=== PATIENT | male | born 1945 | race Caucasian/White ===

== ENCOUNTER 2017-09-22 11:42 | Emergency (ER) | payer MEDICARE, OTHER ==
[~2017-09-22] VITALS: Ht 170.2 cm; Wt 81.7 kg
[~2017-09-22 11:42] MED LIST: ACET325 PO; ALBU90OI6 INH; AMIO200 PO; AMLO10 PO; ASPI81CH PO; ASPI81EC PO; ATOR20 PO; Aspir 8181 MG PO; Aspirin EC81 MG PO; Ativan1 MG PO; Augmentin 875-1 EACH PO; CARB25 PO; CARBI50 PO; DONE5 PO; EZET10-80 PO; FURO20 PO; GABA300T24 PO; LISI20 PO; LORA1 PO; LORA2 PO; METO50ER PO; MIRT15 PO; NAMZARIC 21 MG1 EACH PO; Neupro1 EAC1; OLME20 PO; PANT40 PO; POTCHL20ER PO; PRAM.5 PO; PROAIR RESPICL90 MCG IH; SPACE CHAMBER1 EACH PO; Sulfamethoxazo1 EAC1 PO; WARF1 PO; WARF3 PO; WARF5 PO; XARELTO20 MG PO
[2017-09-22 12:28] LABS: BASOPHILS ABSOLUTE AUTO 0.03 K/mm3 (0.00-0.23); BASOPHILS PERCENT AUTO 0 % (0-2); EOSINOPHILS ABSOLUTE AUTO 0.34 K/mm3 (0.00-0.68); EOSINOPHILS PERCENT AUTO 5 % (0-6); Hemoglobin 14.1 g/dL (13.5-17.5); IMMATURE GRAN ABSOLUTE AUTO 0.03 K/mm3 (0.00-0.10); IMMATURE GRAN PERCENT AUTO 0 % (0-1); LYMPHOCYTES ABSOLUTE AUTO 1.06 K/mm3 (0.84-5.20); LYMPHOCYTES PERCENT AUTO 15 % (21-46); MONOCYTES ABSOLUTE AUTO 0.67 K/mm3 (0.16-1.47); MONOCYTES PERCENT AUTO 10 % (4-13); Mean Corpuscular HGB 27.6 pg (26.0-34.0); Mean Corpuscular HGB Conc 30.7 g/dL (31.5-36.5); Mean Corpuscular Volume 90 fL (80-100); Mean Platelet Volume 10.1 fL (9.1-12.4); NEUTROPHILS ABSOLUTE AUTO 4.94 K/mm3 (1.96-9.15); NEUTROPHILS PERCENT AUTO 70 % (41-73); Platelet Count 197 K/mm3 (150-400); RDW Coefficient Variation 14.7 % (11.7-14.2); RDW Standard Deviation 48.9 fL (35.1-46.3); White Blood Cell Count 7.07 K/mm3 (4.00-11.30)
[2017-09-22 13:00] LABS: Alanine Aminotransfer (ALT/SGP 8 U/L (12-78); Albumin, Blood 3.7 g/dL (3.4-5.0); Albumin/Globulin Ratio 1.1 (0.8-1.8); Alk Phos 116 U/L (50-136); Anion Gap 8 mmol/L (6-16); Aspartate Aminotrans (AST/SGOT 18 U/L (12-37); Bilirubin, Total 0.6 mg/dL (0.1-1.0); Blood Urea Nitrogen 24 mg/dL (8-24); Bun/Creatinine Ratio 20.3 (12.0-20.0); CO2, Blood 27 mmol/L (21-32); Chloride, Blood 107 mmol/L (98-108); Creatinine, Blood 1.18 mg/dL (0.60-1.20); Globulin, Blood 3.5 g/dL (2.2-4.0); Glomerular Filtration Rate >60 (60-); Glucose, Blood 101 mg/dL (70-99); Potassium, Blood 4.2 mmol/L (3.5-5.5); Sodium, Blood 142 mmol/L (136-145); Total Protein, Blood 7.2 g/dL (6.4-8.2)
[2017-09-22 15:10] LABS: Troponin I <0.015 ng/mL (0.000-0.040)
[2018-01-30] MEDS ORDERED: AMLO10 PO (14:32)
[2018-01-30] MEDS ORDERED: FURO40 PO (14:33)
[2018-01-30] MEDS ORDERED: ATOR20 PO (14:33)
[2018-01-30] MEDS ORDERED: ALBU90OI INH (14:37)
[2018-01-30] MEDS ORDERED: MAGNESIUM250 MG PO (14:39)
[2018-01-30] MEDS ORDERED: SPIR25 PO (14:41)
[2018-01-30] MEDS ORDERED: Zantac150 MG PO (14:41)
== END 2017-09-22 15:43 | disposition home or self-care (01) ==
LOC: ER 11:42
PROVIDERS: Psychiatry & Neurology Psychiatry
DX: R42 Dizziness and giddiness (principal); R53.1 Weakness; I10 Essential (primary) hypertension; J44.9 Chronic obstructive pulmonary disease, unspecified; F03.90 Unspecified dementia, unspecified severity, without behavioral disturbance, psychotic disturbance, mood disturbance, and anxiety; Z88.4 Allergy status to anesthetic agent; Z79.899 Other long term (current) drug therapy; Z95.1 Presence of aortocoronary bypass graft; Z87.01 Personal history of pneumonia (recurrent); Z90.89 Acquired absence of other organs; Z87.891 Personal history of nicotine dependence
CPT/HCPCS: 36415; 70450; 71046; 80053; 84484; 85025; 93005; 93010; 99284

== ENCOUNTER 2018-01-31 06:51 | Day surgery (SDC) | payer MEDICARE, OTHER ==
[~2018-01-31] VITALS: Ht 170.2 cm; Wt 85.0 kg
[~2018-01-31 06:51] MED LIST changes: +ALBU90OI INH; +FURO40 PO; +MAGNESIUM250 MG PO; +SPIR25 PO; +Zantac150 MG PO
[2018-01-31] MEDS ORDERED: Carbidopa-Levo1 EAC1 PO (07:36)
[2018-01-31] MEDS ORDERED: ENTRESTO 24 MG1 EACH PO (10:44)
== END 2018-01-31 14:15 | disposition home or self-care (01) ==
LOC: MHTC 06:51
PROC: B213YZZ Fluoroscopy of Multiple Coronary Artery Bypass Grafts using Other Contrast (ICD-10-PCS; principal; 2018-01-31)
PROC: 4A023N7 Measurement of Cardiac Sampling and Pressure, Left Heart, Percutaneous Approach (ICD-10-PCS; principal; 2018-01-31)
PROC: B211YZZ Fluoroscopy of Multiple Coronary Arteries using Other Contrast (ICD-10-PCS; principal; 2018-01-31)
DX: I25.119 Atherosclerotic heart disease of native coronary artery with unspecified angina pectoris (principal); I25.719 Atherosclerosis of autologous vein coronary artery bypass graft(s) with unspecified angina pectoris; I25.2 Old myocardial infarction; I34.0 Nonrheumatic mitral (valve) insufficiency; E78.5 Hyperlipidemia, unspecified; G20 Parkinson's disease
CPT/HCPCS: 93455; 93459; 99152; 99153; C1769; C1894; J1644; J2250; J3010; J7030; J7040; Q9967

== ENCOUNTER 2018-11-23 07:41 | Emergency (ER) | payer MEDICARE, OTHER ==
[~2018-11-23] VITALS: Ht 170.2 cm; Wt 81.7 kg
[~2018-11-23 07:41] MED LIST changes: +Carbidopa-Levo1 EAC1 PO; +ENTRESTO 24 MG1 EACH PO
[2018-11-23 08:24] LABS: BASOPHILS ABSOLUTE AUTO 0.03 K/mm3 (0.00-0.23); BASOPHILS PERCENT AUTO 1 % (0-2); EOSINOPHILS ABSOLUTE AUTO 0.13 K/mm3 (0.00-0.68); EOSINOPHILS PERCENT AUTO 2 % (0-6); Hematocrit 41.4 % (37.0-53.0); Hemoglobin 11.9 g/dL (13.5-17.5); IMMATURE GRAN ABSOLUTE AUTO 0.03 K/mm3 (0.00-0.10); IMMATURE GRAN PERCENT AUTO 1 % (0-1); LYMPHOCYTES PERCENT AUTO 12 % (21-46); MONOCYTES ABSOLUTE AUTO 0.56 K/mm3 (0.16-1.47); MONOCYTES PERCENT AUTO 9 % (4-13); Mean Corpuscular HGB 24.1 pg (26.0-34.0); Mean Corpuscular HGB Conc 28.7 g/dL (31.5-36.5); Mean Corpuscular Volume 84 fL (80-100); Mean Platelet Volume 10.7 fL (9.1-12.4); NEUTROPHILS ABSOLUTE AUTO 4.94 K/mm3 (1.96-9.15); NEUTROPHILS PERCENT AUTO 76 % (41-73); Platelet Count 150 K/mm3 (150-400); RDW Coefficient Variation 16.9 % (11.7-14.2); Red Blood Cell Count 4.93 M/mm3 (4.30-5.90); White Blood Cell Count 6.49 K/mm3 (4.00-11.30)
[2018-11-23 08:43] LABS: Alanine Aminotransfer (ALT/SGP 9 U/L (12-78); Albumin/Globulin Ratio 1.3 (0.8-1.8); Alk Phos 126 U/L (50-136); Anion Gap 10 mmol/L (6-16); Aspartate Aminotrans (AST/SGOT 18 U/L (12-37); Bilirubin, Total 0.8 mg/dL (0.1-1.0); Blood Urea Nitrogen 26 mg/dL (8-24); Bun/Creatinine Ratio 17.7 (12.0-20.0); CO2, Blood 23 mmol/L (21-32); Calcium, Blood 8.5 mg/dL (8.5-10.1); Chloride, Blood 110 mmol/L (98-108); Creatinine, Blood 1.47 mg/dL (0.60-1.20); Glomerular Filtration Rate 50 (60-); Glucose, Blood 113 mg/dL (70-99); Potassium, Blood 4.1 mmol/L (3.5-5.5); Sodium, Blood 143 mmol/L (136-145); Troponin I <0.015 ng/mL (0.000-0.040)
[2018-11-23 09:23] LABS: Influenza A Negative (NEGATIVE); Influenza B Negative (NEGATIVE)
[2018-11-23] MEDS ORDERED: Lasix40 MG PO (11:12)
== END 2018-11-23 11:52 | disposition home or self-care (01) ==
LOC: ER 07:41
PROVIDERS: Emergency Medicine
DX: I11.0 Hypertensive heart disease with heart failure (principal); I50.9 Heart failure, unspecified; J44.9 Chronic obstructive pulmonary disease, unspecified; F03.90 Unspecified dementia, unspecified severity, without behavioral disturbance, psychotic disturbance, mood disturbance, and anxiety; Z87.891 Personal history of nicotine dependence; Z88.8 Allergy status to other drugs, medicaments and biological substances; Z79.899 Other long term (current) drug therapy
CPT/HCPCS: 36415; 71046; 80053; 83880; 84484; 85025; 87804; 93005; 93010; 96374; 99285-25; J1940

== ENCOUNTER 2019-03-15 20:52 | Emergency (ER) | payer MEDICARE, OTHER ==
[~2019-03-15] VITALS: Ht 172.7 cm; Wt 84.8 kg
[~2019-03-15 20:52] MED LIST changes: -NAMZARIC 28 MG1 EACH PO; -SINEMET 25-1001 EACH PO
[2019-03-15] MEDS ORDERED: SINEMET 25-1001 EACH PO (23:23)
== END 2019-03-16 00:35 | disposition home or self-care (01) ==
LOC: ER 20:52
DX: S05.01XA Injury of conjunctiva and corneal abrasion without foreign body, right eye, initial encounter (principal); W22.8XXA Striking against or struck by other objects, initial encounter; I10 Essential (primary) hypertension; J44.9 Chronic obstructive pulmonary disease, unspecified; F03.90 Unspecified dementia, unspecified severity, without behavioral disturbance, psychotic disturbance, mood disturbance, and anxiety; G20 Parkinson's disease; Z87.891 Personal history of nicotine dependence; Z88.8 Allergy status to other drugs, medicaments and biological substances; Z79.899 Other long term (current) drug therapy
CPT/HCPCS: 90471; 90714; 99283-25

== ENCOUNTER → 2019-03-15 | Outpatient (CLI) | payer MEDICARE, OTHER ==
[~2019-03-15] MED LIST changes: +Lasix40 MG PO; +NAMZARIC 28 MG1 EACH PO; +SINEMET 25-1001 EACH PO
[2019-03-15 15:35] LABS: BASOPHILS ABSOLUTE AUTO 0.04 K/mm3 (0.00-0.23); BASOPHILS PERCENT AUTO 1 % (0-2); EOSINOPHILS ABSOLUTE AUTO 0.16 K/mm3 (0.00-0.68); EOSINOPHILS PERCENT AUTO 2 % (0-6); Hematocrit 42.3 % (37.0-53.0); Hemoglobin 13.2 g/dL (13.5-17.5); IMMATURE GRAN ABSOLUTE AUTO 0.05 K/mm3 (0.00-0.10); IMMATURE GRAN PERCENT AUTO 1 % (0-1); LYMPHOCYTES ABSOLUTE AUTO 0.81 K/mm3 (0.84-5.20); LYMPHOCYTES PERCENT AUTO 10 % (21-46); MONOCYTES ABSOLUTE AUTO 0.73 K/mm3 (0.16-1.47); MONOCYTES PERCENT AUTO 9 % (4-13); Mean Corpuscular HGB 26.7 pg (26.0-34.0); Mean Corpuscular HGB Conc 31.2 g/dL (31.5-36.5); Mean Corpuscular Volume 86 fL (80-100); Mean Platelet Volume 10.4 fL (9.1-12.4); NEUTROPHILS ABSOLUTE AUTO 6.26 K/mm3 (1.96-9.15); NEUTROPHILS PERCENT AUTO 78 % (41-73); Platelet Count 143 K/mm3 (150-400); RDW Coefficient Variation 17.2 % (11.7-14.2); RDW Standard Deviation 53.1 fL (35.1-46.3); Red Blood Cell Count 4.95 M/mm3 (4.30-5.90); White Blood Cell Count 8.05 K/mm3 (4.00-11.30)
== END ==
LOC: LAB EV 15:31 → LAB SHORT 15:31
PROVIDERS: Nurse Practitioner
DX: K64.9 Unspecified hemorrhoids (principal)
CPT/HCPCS: 85025

== ENCOUNTER 2019-04-20 16:37 | Emergency (ER) | payer MEDICARE, OTHER ==
[~2019-04-20] VITALS: Ht 170.2 cm; Wt 67.1 kg
[~2019-04-20 16:37] MED LIST changes: +SINEMET 25-1001 EACH PO
[2019-04-20 17:32] LABS: Source, Urine Clean Catch
[2019-04-20 17:35] LABS: BASOPHILS ABSOLUTE AUTO 0.03 K/mm3 (0.00-0.23); BASOPHILS PERCENT AUTO 0 % (0-2); EOSINOPHILS ABSOLUTE AUTO 0.09 K/mm3 (0.00-0.68); EOSINOPHILS PERCENT AUTO 1 % (0-6); Hematocrit 44.6 % (37.0-53.0); Hemoglobin 13.7 g/dL (13.5-17.5); IMMATURE GRAN ABSOLUTE AUTO 0.03 K/mm3 (0.00-0.10); IMMATURE GRAN PERCENT AUTO 0 % (0-1); LYMPHOCYTES ABSOLUTE AUTO 0.86 K/mm3 (0.84-5.20); LYMPHOCYTES PERCENT AUTO 10 % (21-46); MONOCYTES ABSOLUTE AUTO 0.76 K/mm3 (0.16-1.47); MONOCYTES PERCENT AUTO 9 % (4-13); Mean Corpuscular HGB 27.1 pg (26.0-34.0); Mean Corpuscular HGB Conc 30.7 g/dL (31.5-36.5); Mean Corpuscular Volume 88 fL (80-100); Mean Platelet Volume 10.4 fL (9.1-12.4); NEUTROPHILS ABSOLUTE AUTO 6.99 K/mm3 (1.96-9.15); NEUTROPHILS PERCENT AUTO 80 % (41-73); Platelet Count 164 K/mm3 (150-400); RDW Coefficient Variation 15.5 % (11.7-14.2); RDW Standard Deviation 50.1 fL (35.1-46.3); Red Blood Cell Count 5.06 M/mm3 (4.30-5.90); White Blood Cell Count 8.76 K/mm3 (4.00-11.30)
[2019-04-20 17:37] LABS: Bilirubin, Urine Neg (Neg); Blood, Urine 1+ (Neg); Glucose Qualitative, Urine Neg (Neg); Ketones, Urine Neg (Neg); Leukocyte Esterase, Urine Neg (Neg); Nitrite, Urine Neg (Neg); Protein, Urine Neg (Neg); Specific Gravity, Urine 1.015 (1.003-1.022); Urobilinogen, Urine NORM (Normal)
[2019-04-20 17:46] LABS: Appearance, Urine Hazy (Clear); Color, Urine Pale Yellow (P-Yellow)
[2019-04-20 17:47] LABS: Bacteria Not Seen /hpf; Red Blood Cells, Urine 0-2 /hpf (0-2); Squamous Epithelial Cells Rare /hpf (Few); White Blood Cells, Urine 0-2 /hpf (0-5)
[2019-04-20 17:57] LABS: Albumin, Blood 3.9 g/dL (3.4-5.0); Albumin/Globulin Ratio 1.3 (0.8-1.8); Bilirubin, Total 0.9 mg/dL (0.1-1.0); Bun/Creatinine Ratio 17.1 (12.0-20.0); Calcium, Blood 8.9 mg/dL (8.5-10.1); Creatinine, Blood 1.46 mg/dL (0.60-1.20); Potassium, Blood 3.6 mmol/L (3.5-5.5); Total Protein, Blood 6.9 g/dL (6.4-8.2)
[2019-04-20] MEDS ORDERED: NAMZARIC 28 MG1 EACH PO (18:38)
[2019-04-20] MEDS ORDERED: PRAM.5 PO (18:55)
== END 2019-04-20 20:15 | disposition home or self-care (01) ==
LOC: ER 16:37
PROVIDERS: Emergency Medicine
DX: R53.83 Other fatigue (principal); I12.9 Hypertensive chronic kidney disease with stage 1 through stage 4 chronic kidney disease, or unspecified chronic kidney disease; N18.9 Chronic kidney disease, unspecified; J44.9 Chronic obstructive pulmonary disease, unspecified; G20 Parkinson's disease; F02.80 Dementia in other diseases classified elsewhere, unspecified severity, without behavioral disturbance, psychotic disturbance, mood disturbance, and anxiety; Z87.891 Personal history of nicotine dependence; Z88.8 Allergy status to other drugs, medicaments and biological substances; Z88.4 Allergy status to anesthetic agent; Z79.899 Other long term (current) drug therapy
CPT/HCPCS: 36415; 71046; 80053; 81001; 85025; 93005; 93010; 99284-25

== ENCOUNTER 2019-08-17 03:25 | Emergency (ER) | payer MEDICARE, OTHER ==
[~2019-08-17] VITALS: Ht 170.2 cm; Wt 81.7 kg
[~2019-08-17 03:25] MED LIST changes: +NAMZARIC 28 MG1 EACH PO
[2019-08-17 03:42] LABS: BASOPHILS ABSOLUTE AUTO 0.03 K/mm3 (0.00-0.23); BASOPHILS PERCENT AUTO 0 % (0-2); EOSINOPHILS ABSOLUTE AUTO 0.02 K/mm3 (0.00-0.68); EOSINOPHILS PERCENT AUTO 0 % (0-6); Hematocrit 40.1 % (37.0-53.0); Hemoglobin 12.2 g/dL (13.5-17.5); IMMATURE GRAN ABSOLUTE AUTO 0.07 K/mm3 (0.00-0.10); IMMATURE GRAN PERCENT AUTO 1 % (0-1); LYMPHOCYTES ABSOLUTE AUTO 0.51 K/mm3 (0.84-5.20); LYMPHOCYTES PERCENT AUTO 6 % (21-46); MONOCYTES ABSOLUTE AUTO 0.59 K/mm3 (0.16-1.47); MONOCYTES PERCENT AUTO 7 % (4-13); Mean Corpuscular HGB 27.4 pg (26.0-34.0); Mean Corpuscular HGB Conc 30.4 g/dL (31.5-36.5); Mean Corpuscular Volume 90 fL (80-100); Mean Platelet Volume 10.9 fL (9.1-12.4); NEUTROPHILS ABSOLUTE AUTO 6.71 K/mm3 (1.96-9.15); NEUTROPHILS PERCENT AUTO 85 % (41-73); Platelet Count 125 K/mm3 (150-400); RDW Coefficient Variation 15.5 % (11.7-14.2); RDW Standard Deviation 51.5 fL (35.1-46.3); Red Blood Cell Count 4.46 M/mm3 (4.30-5.90); White Blood Cell Count 7.93 K/mm3 (4.00-11.30)
[2019-08-17] MEDS ORDERED: FURO40 PO (03:44)
[2019-08-17] MEDS ORDERED: PRAMIPEXOLE (03:45)
[2019-08-17] MEDS ORDERED: ATOR20 PO (03:45)
[2019-08-17] MEDS ORDERED: METO5 PO (03:45)
[2019-08-17] MEDS ORDERED: SINEMET 25-1001 EACH PO (03:46)
[2019-08-17] MEDS ORDERED: XARELTO15 MG PO (03:46)
[2019-08-17] MEDS ORDERED: NAMZARIC 28 MG1 EACH PO (03:46)
[2019-08-17] MEDS ORDERED: LOSA50 PO (03:46)
[2019-08-17] MEDS ORDERED: KATERZIA1 MG/1 ML PO (03:47)
[2019-08-17] MEDS ORDERED: AMLO10 PO (03:48)
[2019-08-17 04:00] LABS: Alanine Aminotransfer (ALT/SGP 12 U/L (12-78); Albumin, Blood 3.6 g/dL (3.4-5.0); Albumin/Globulin Ratio 1.2 (0.8-1.8); Alk Phos 107 U/L (50-136); Anion Gap 8 mmol/L (6-16); Aspartate Aminotrans (AST/SGOT 18 U/L (12-37); Bilirubin, Total 0.5 mg/dL (0.1-1.0); Blood Urea Nitrogen 28 mg/dL (8-24); Bun/Creatinine Ratio 22.8 (12.0-20.0); CO2, Blood 25 mmol/L (21-32); Calcium, Blood 8.6 mg/dL (8.5-10.1); Chloride, Blood 106 mmol/L (98-108); Creatinine, Blood 1.23 mg/dL (0.60-1.20); Glomerular Filtration Rate >60 (60-); Glucose, Blood 238 mg/dL (70-99); Potassium, Blood 3.7 mmol/L (3.5-5.5); Sodium, Blood 139 mmol/L (136-145); Total Protein, Blood 6.6 g/dL (6.4-8.2); Troponin I <0.015 ng/mL (0.000-0.040)
== END 2019-08-17 09:34 | disposition home or self-care (01) ==
LOC: ER 03:25
PROVIDERS: Emergency Medicine
DX: R07.89 Other chest pain (principal); J44.9 Chronic obstructive pulmonary disease, unspecified; I25.10 Atherosclerotic heart disease of native coronary artery without angina pectoris; I10 Essential (primary) hypertension; F03.90 Unspecified dementia, unspecified severity, without behavioral disturbance, psychotic disturbance, mood disturbance, and anxiety; Z88.8 Allergy status to other drugs, medicaments and biological substances; Z88.4 Allergy status to anesthetic agent; Z79.899 Other long term (current) drug therapy; Z79.51 Long term (current) use of inhaled steroids; Z95.1 Presence of aortocoronary bypass graft; Z87.891 Personal history of nicotine dependence
CPT/HCPCS: 36415; 71046; 80053; 83690; 83880; 84484; 85025; 93005; 93010; 99285-25; A9270

== ENCOUNTER → 2020-05-28 | Outpatient (CLI) | payer MEDICARE, OTHER ==
[~2020-05-28] MED LIST changes: +Doxycycline Mo100 M1 PO; +KATERZIA1 MG/1 ML PO; +LOSA50 PO; +METO5 PO; +PRAMIPEXOLE; +PRED20 PO; +XARELTO15 MG PO
[2020-05-28 09:54] LABS: BASOPHILS ABSOLUTE AUTO 0.03 K/mm3 (0.00-0.23); BASOPHILS PERCENT AUTO 0 % (0-2); EOSINOPHILS ABSOLUTE AUTO 0.12 K/mm3 (0.00-0.68); EOSINOPHILS PERCENT AUTO 1 % (0-6); Hematocrit 39.4 % (37.0-53.0); Hemoglobin 11.9 g/dL (13.5-17.5); IMMATURE GRAN ABSOLUTE AUTO 0.12 K/mm3 (0.00-0.10); IMMATURE GRAN PERCENT AUTO 1 % (0-1); LYMPHOCYTES PERCENT AUTO 9 % (21-46); MONOCYTES ABSOLUTE AUTO 0.65 K/mm3 (0.16-1.47); MONOCYTES PERCENT AUTO 8 % (4-13); Mean Corpuscular HGB 24.1 pg (26.0-34.0); Mean Corpuscular HGB Conc 30.2 g/dL (31.5-36.5); Mean Corpuscular Volume 80 fL (80-100); Mean Platelet Volume 11.5 fL (9.1-12.4); NEUTROPHILS ABSOLUTE AUTO 6.83 K/mm3 (1.96-9.15); NEUTROPHILS PERCENT AUTO 80 % (41-73); Platelet Count 177 K/mm3 (150-400); RDW Standard Deviation 45.8 fL (35.1-46.3); Red Blood Cell Count 4.94 M/mm3 (4.30-5.90); White Blood Cell Count 8.55 K/mm3 (4.00-11.30)
[2020-05-28 10:04] LABS: Albumin/Globulin Ratio 1.2 (0.8-1.8); Bun/Creatinine Ratio 19.1 (12.0-20.0); Calcium, Blood 8.8 mg/dL (8.5-10.1); Creatinine, Blood 1.78 mg/dL (0.60-1.20); Globulin, Blood 3.4 g/dL (2.2-4.0); Potassium, Blood 3.9 mmol/L (3.5-5.5); Total Protein, Blood 7.4 g/dL (6.4-8.2)
[2020-05-28 10:12] LABS: Thyroid Stimulating Hormone 0.938 uIU/mL (0.360-4.800); Troponin I 0.028 ng/mL (0.000-0.040)
== END ==
LOC: LAB EV 09:46 → LAB SHORT 09:46
PROVIDERS: Physician Assistant
DX: R07.9 Chest pain, unspecified (principal); R53.83 Other fatigue
CPT/HCPCS: 80053; 83880; 84443; 84484; 85025